=== PATIENT | female | born 1990 | race American Indian/Alaskan Native ===

== ENCOUNTER 2018-04-15 20:21 | Emergency (ER) | payer MEDICAID, OTHER ==
[2018-04-15 20:50] VITALS: BP 144/101
[2018-04-15] MEDS ORDERED: TYLENOL PO ONE (20:50)
[2018-04-15 21:17] LABS: HCG Qualitative,Urine Negative (Negative)
[2018-04-16] MEDS ORDERED: NORCO 5/325 PO ONE (00:23)
[2018-04-16] MEDS ORDERED: NORCO 5/325 ONE (00:25)
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
== END 2018-04-16 02:05 | disposition home or self-care (01) ==
LOC: ED 20:21
DX: M79.1 Myalgia (principal); V49.09XA Driver injured in collision with other motor vehicles in nontraffic accident, initial encounter; Y93.89 Activity, other specified; Y99.8 Other external cause status; Y92.488 Other paved roadways as the place of occurrence of the external cause
CPT/HCPCS: 81025; 99282

== ENCOUNTER 2019-02-16 09:04 | Outpatient (CLI) | payer MEDICAID ==
[2019-02-16 09:32] VITALS: BP 123/85
[2019-02-16] MEDS ORDERED: LACTATED RINGERS 1,000 ML IV SCH (10:00)
== END 2019-02-16 10:06 | disposition home or self-care (01) ==
LOC: TRG 09:04
PROVIDERS: ATTEND Obstetrics & Gynecology
DX: O47.1 False labor at or after 37 completed weeks of gestation (principal); O10.013 Pre-existing essential hypertension complicating pregnancy, third trimester; Z3A.38 38 weeks gestation of pregnancy
CPT/HCPCS: 59025

== ENCOUNTER 2019-02-20 11:24 | Inpatient (IN) | payer MEDICAID ==
[2019-02-20] MEDS ORDERED: LACTATED RINGERS 1,000 ML ONE (11:36)
[2019-02-20] MEDS: LACTATED RINGERS 1,000 ML IV SCH (12:18)
[2019-02-20] MEDS ORDERED: BRETHINE SUB-Q PRN (12:57)
[2019-02-20] MEDS ORDERED: BRETHINE IVP PRN (12:57)
[2019-02-20] MEDS ORDERED: STADOL IV PRN (12:57)
[2019-02-20] MEDS ORDERED: MINERAL OIL PO PRN (12:57)
[2019-02-20] MEDS ORDERED: SUBLIMAZE IV PRN (12:57)
[2019-02-20] MEDS ORDERED: PITOCin/NS 20 UNIT/1000ML DRIP 20 UNITS/1,000 ML BAG IV SCH (13:00)
--- NOTE | 2019-02-20 13:08 | History and Physical Report ---
History of Present Illness Date of examination: 02/20/19 Date of admission: 02/20/19 11:24 Chief complaint: Direct admit from the clinic for IOL History of present illness: 28yo G 2 P 1 0 0 1 @ 39 weeks 0 day here from the clinic for a direct admission secondary to elevated BPs at the clinic, SO of 1.71cm & BPP of 6/8 at [facility]. Report available and reviewed. She reports +FMs but denies UCs, VB, LOF, headache, visual disturbances or RUQ pain. She is a [employer] patient who initiated care at 5 weeks gestation. Her course is complicated by h/o pre-eclampsia (on ASA 81mg qd), chronic HTN(on Methyldopa 250mg BID), history of genital herpes (on suppressive therapy; denies recent outbreak or prodromal sxs) and ASCUS with +HR HPV on pap. Labs: Opos, Antibody Screen neg, RI, VDRL NR, HBsAg neg, HIV neg, Diabetes Screen 110, GC/CT/Trich neg, GBS neg. Past History Past Medical History: hypertension Past Surgical History: no surgical history [employer] History: abnormal PAP smear (+HR HPV), herpes Family/Genetic History: diabetes (type I), hypertension, cancer (breast), other (SLE) Social history: , lives with family, full code. denies: smoking, alcohol abuse, prescription drug abuse, IV drug use - Obstetrical History Expected Date of Delivery: 02/27/19 Actual Gestation: 39 Week(s) 0 Day(s) : 2 Para: 1 Hx # Term Pregnancies: 1 Number of Pregnancies: 0 Spontaneous Abortions: 0 Induced : 0 Number of Living Children: 1 #1 Infant Gender: Male year: [birth year]) Birthweight: 3.147 kg Gestational age at delivery: 38 Complications: other (pre-eclamptic, MgSO4 during labor, antihypertensive PP) Medications and Allergies Allergies Allergy/AdvReac Type Severity Reaction Status Date / Time No Known Allergies Allergy Verified 04/16/18 00:36 Home Medications Medication Instructions Recorded Confirmed Last Taken Type Methyldopa [Aldomet] 1 tab PO BID 02/20/19 02/20/19 02/20/19 07:00 History Vit-Fe Fumar-FA [ 1 tab PO QDAY 06/02/20/19 02/20/19 Hist ory Vitamin] valACYclovir [Valtrex] 500 mg PO BID 02/20/19 02/20/19 02/20/19 History Active Meds: Active Medications Lactated Ringer's (Lactated Ringers) 1,000 mls @ 125 mls/hr IV DIRECT MENDEZ Last Admin: 02/20/19 12:18 Dose: 125 mls/hr Documented by: Review of Systems All systems: negative - Vital Signs Vital signs: Vital Signs Pulse Pulse Ox 89 96 02/20/19 11:42 02/20/19 11:42 Temp Pulse Resp BP Pulse Ox 80 139/89 96 02/20/19 12:37 02/20/19 12:37 02/20/19 12:02 - Obstetrical FHR: auscultation normal, category 1 FHR comments: baseline 130, moderate variability, 15x15 accels, no decels Cervical Dilatation: 0.5 Cervical Effacement Percentage: 60 station: -2 Uterine Contraction Pattern: Irregular Results All other labs normal. Assessment and Plan - Patient Problems (1) 39 weeks gestation of Current Visit: Yes Status: Acute (2) Oligohydramnios in third trimester Current Visit: Yes Status: Acute Plan to address problem: SO 1.71cm today at [facility]. Report available and reviewed. (3) Chronic hypertension during Current Visit: Yes Status: Acute Plan to address problem: Asymptomatic PIH labs ordered (pending) Continue Methyldopa 250mg PO BID (4) Encounter for induction of labor Current Visit: Yes Status: Acute Plan to address problem: Admit to L&D with routine labor orders Cervical for cervical ripening Anticipate vaginal delivery
[2019-02-20 13:16] LABS: Hematocrit 35.6 % (30.3-42.9); Hemoglobin 12.3 gm/dl (10.1-14.3); Mean Corpuscular HGB Conc 35 % (30-34); Mean Corpuscular Volume 88 fl (79-97); Platelet Count 277 K/mm3 (140-440); Red Blood Count 4.05 M/mm3 (3.65-5.03); Red Cell Distribution Width 14.6 % (13.2-15.2)
[2019-02-20 13:19] LABS: Bilirubin,Urine NEG (Negative); Blood,Urine NEG (Negative); Color,Urine Yellow (Yellow); Protein,Urine <15 mg/dL mg/dL (Negative); Urobilinogen,Urine < 2.0 mg/dL (<2.0)
[2019-02-20 13:20] LABS: Alanine Aminotransferase 21 units/L (7-56); Uric Acid 4.3 mg/dL (3.5-7.6)
[2019-02-20] MEDS ORDERED: CERVIDIL VG ONE (13:57)
[2019-02-20] MEDS ORDERED: XYLOCAINE 2% INFILTRATI ONE (14:00)
[2019-02-20] MEDS ORDERED: ALDOMET PO SCH (22:00)
[2019-02-20] MEDS ORDERED: MAGNESIUM SULFATE 4GM/100ML 4 GM/100 ML BAG IV ONE (22:02)
[2019-02-20] MEDS ORDERED: APRESOLINE IV ONE (22:08)
--- NOTE | 2019-02-20 22:11 | Event Note ---
Date: 02/20/19 BPs elevated 150s-160s/100s. Pt. denies headache, visual disturbance, swelling, or nausea/vomiting. IV Hydralazine ordered. Magnesium Sulfate ordered. Discussed elevated blood pressures with patient and need for above medications. Patient states she is in agreement with plan. Dr. Christine notified of elevated BPs and interventions taken.
[2019-02-20] MEDS ORDERED: MAGNESIUM SULFATE 40GM/1000ML 40 GM/1,000 ML BAG IV SCH (23:00)
[2019-02-21] MEDS: ALDOMET PO SCH ×3 (00:12→21:53)
--- NOTE | 2019-02-21 07:07 | Event Note ---
Date: 02/21/19 Patient declines to have another Cervidil. Pitocin induction ordered. Discussed with patient risks and benefits of Pitocin. Patient consented to Pitocin induction of labor. Orders put in.
[2019-02-21] MEDS ORDERED: PITOCin/NS 30 UNIT/500ML 30 UNITS/500 ML BAG IV SCH (08:00)
--- NOTE | 2019-02-21 09:12 | Progress Note ---
Assessment and Plan A: at 39 1/7 weeks gestation. Chronic hypertension with superimposed preeclampsia. Oligohydramnios. GBS negative. 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 P: Continuous EFM. Patient has refused Magnesium Sulfate (and she has been advised of risks of refusal). Pitocin induction of labor. Bedrest/SCDs. Continue Valtrex suppression of HSV. Consulted MD regarding this patient. Subjective - Subjective Date of service: 02/21/19 Principal diagnosis: at 39 1/7 weeks gestation; chronic HTN, oligohydramnios Interval history: Labor is being induced with Pitocin at 39 1/7 weeks gestation due to chronic hypertension and oligohydramnios. Patient has been taking Aldomet 250 mg po BID throughout her and during this admission. Patient had several markedly elevated blood pressures last night; IV hydralazine was ordered and magnesium sulfate was ordered. Per RN, patient refused magnesium sulfate. Patient has been advised of the risks of refusal (including seizures, possible or maternal compromise). Patient denies headache, visual disturbance, nausea or vomiting, edema, epigastric or abdominal pain. Patient denies leaking of fluid or vaginal bleeding. Patient reports active movement. She reports irregular contractions. Patient has refused a second Cervidil so Pitocin was begun earlier this morning. Patient reports: movement normal, contractions, no new complaints, no loss of fluid, no vaginal bleeding Objective - Vital Signs Vital Signs: Vital Signs - 12hr 02/20/19 02/20/19 02/20/19 21:19 21:28 21:34 Temperature Pulse Rate 82 93 H 102 H Respiratory Rate Blood Pressure 156/100 144/88 156/114 Blood Pressure [Left] 02/20/19 02/20/19 02/20/19 21:50 22:04 22:19 Temperature Pulse Rate 89 83 83 Respiratory Rate Blood Pressure 165/98 124/73 129/71 Blood Pressure [Left] 02/20/19 02/20/19 02/20/19 22:34 22:49 23:04 Temperature Pulse Rate 84 81 90 Respiratory Rate Blood Pressure 123/67 125/61 125/66 Blood Pressure [Left] 02/20/19 02/21/19 02/21/19 23:40 00:06 00:07 Temperature 96.9 F L Pulse Rate 85 78 Respiratory 16 Rate Blood Pressure 157/97 120/75 Blood Pressure [Left] 02/21/19 02/21/19 02/21/19 00:10 00:12 01:10 Temperature Pulse Rate 80 80 82 Respiratory Rate Blood Pressure 126/78 126/78 120/77 Blood Pressure [Left] 02/21/19 02/21/19 02/21/19 01:40 02:10 02:40 Temperature Pulse Rate 72 76 82 Respiratory Rate Blood Pressure 112/62 112/63 111/64 Blood Pressure [Left] 02/21/19 02/21/19 02/21/19 03:10 03:40 04:10 Temperature Pulse Rate 75 82 79 Respiratory Rate Blood Pressure 120/65 111/66 112/67 Blood Pressure [Left] 02/21/19 02/21/19 02/21/19 04:40 05:10 05:40 Temperature 97.5 F L Pulse Rate 76 68 95 H Respiratory 18 Rate Blood Pressure 119/67 108/57 121/77 Blood Pressure [Left] 02/21/19 02/21/19 02/21/19 07:03 07:45 08:45 Temperature 96.8 F L Pulse Rate 89 88 80 Respiratory 16 Rate Blood Pressure 117/76 137/99 123/84 Blood Pressure 137/99 [Left] 02/21/19 09:00 Temperature Pulse Rate 75 Respiratory Rate Blood Pressure 128/75 Blood Pressure [Left] - Exam Abdomen: Present: normal appearance, soft. Absent: distention, tenderness, guarding, rigidity Uterus: Present: normal, fundal height above umbilicus FHR: category 1 Uterine Contraction Monitor Mode: External Uterine Contraction Pattern: Irregular Uterine Contraction Intensity: Mild Extremities: normal - Labs Labs: Abnormal Labs 02/20/19 02/20/19 02/20/19 12:30 12:30 12:30 MCHC 35 H Creatinine 0.5 L Lactate Dehydrogenase 237 H Urine pH 8.0 H Laboratory Results - last 24 hr 02/20/19 02/20/19 02/20/19 12:30 12:30 12:30 WBC 7.8 RBC 4.05 Hgb 12.3 Hct 35.6 MCV 88 MCH 30 MCHC 35 H RDW 14.6 Plt Count 277 Creatinine 0.5 L Estimated GFR > 60 Uric Acid 4.3 Magnesium AST 28 ALT 21 Lactate Dehydrogenase 237 H Urine Color Yellow Urine Turbidity Slightly-cloudy Urine pH 8.0 H Ur Specific [place] 1.004 Urine Protein <15 mg/dl Urine Glucose (UA) Neg Urine Ketones Neg Urine Blood Neg Urine Nitrite Neg Urine Bilirubin Neg Urine Urobilinogen < 2.0 Ur Leukocyte Esterase Sm Urine WBC (Auto) 3.0 Urine RBC (Auto) 5.0 U Epithel Cells (Auto) 4.0 Urine Yeast (Budding) Few Blood Type Antibody Screen 02/20/19 02/21/19 12:30 04:27 WBC RBC Hgb Hct MCV MCH MCHC RDW Plt Count Creatinine Estimated GFR Uric Acid Magnesium 1.70 AST ALT Lactate Dehydrogenase Urine Color Urine Turbidity Urine pH Ur Specific [place] Urine Protein Urine Glucose (UA) Urine Ketones Urine Blood Urine Nitrite Urine Bilirubin Urine Urobilinogen Ur Leukocyte Esterase Urine WBC (Auto) Urine RBC (Auto) U Epithel Cells (Auto) Urine Yeast (Budding) Blood Type O POSITIVE Antibody Screen Negative
[2019-02-21] MEDS ORDERED: NARCAN 2 MG/2 ML IV PRN (11:33)
--- NOTE | 2019-02-21 11:36 | Anesthesia Day of Surgery ---
Anesthesia Day of Surgery - Day of Surgery Patient Examined: Yes Patient H&P Reviewed: Yes
--- NOTE | 2019-02-21 11:36 | Anesthesia Consultation ---
Anesthesia Consult and Med Hx Date of service: 02/21/19 - Pre-Operative Health Status ASA Pre-Surgery Classification: ASA2 Proposed Anesthetic Plan: Epidural - Pulmonary Hx Asthma: No COPD: No Hx Pneumonia: No - Cardiovascular System Hx Hypertension: Yes (Pre-eclampsia) - Central Nervous System Hx Seizures: No Hx Psychiatric Problems: No - Endocrine Hx Renal Disease: No Hx End Stage Renal Disease: No Hx Hypothyroidism: No Hx Hyperthyroidism: No - Hematic Hx Anemia: No Hx Sickle Cell Disease: No - Other Systems Hx Alcohol Use: No
[2019-02-21] MEDS ORDERED: fentaNYL-BUPIV 2 MCG/ML-0.125% 200 MCG/100 ML BAG EPIDURAL SCH (12:00)
[2019-02-21] MEDS ORDERED: CERVIDIL VG ONE (18:00)
--- NOTE | 2019-02-21 18:33 | Event Note ---
Date: 02/21/19 Cervidil 10 mg vaginal insert placed in posterior fornix of vagina.
[2019-02-21] MEDS: VALTREX PO SCH (21:54)
--- NOTE | 2019-02-22 08:24 | Progress Note ---
Assessment and Plan A: at 39 2/7 weeks gestation. Chronic hypertension. Oligohydramnios. GBS negative. P: Pitocin induction of labor. Continuous EFM. Continue Aldomet 250 mg po BID. Subjective - Subjective Date of service: 02/22/19 Principal diagnosis: at 39 2/7 weeks gestation; chronic HTN, oligohydramnios; IOL Interval history: Labor is being induced with Pitocin at 39 2/7 weeks gestation due to chronic hypertension and oligohydramnios. Patient has been taking Aldomet 250 mg po BID throughout her and during this admission. Patient had Cervidil again overnight. She reports irregular contractions, le aking of fluid, or vaginal bleeding. Patient reports active movement. She denies headache, visual disturbance, or edema. Patient reports: movement normal, contractions, no new complaints, no loss of fluid, no vaginal bleeding Objective - Vital Signs Vital Signs: Vital Signs - 12hr 02/21/19 02/21/19 02/21/19 21:17 21:53 21:54 Temperature Pulse Rate 79 79 91 H Respiratory Rate Blood Pressure 117/68 110/59 110/59 Blood Pressure [Right] 02/21/19 02/21/19 02/22/19 22:17 23:17 00:17 Temperature Pulse Rate 84 72 78 Respiratory Rate Blood Pressure 113/70 114/65 107/60 Blood Pressure [Right] 02/22/19 02/22/19 02/22/19 00:30 01:17 02:17 Temperature 97.7 F Pulse Rate 77 82 Respiratory 18 Rate Blood Pressure 102/58 113/71 Blood Pressure [Right] 02/22/19 02/22/19 02/22/19 05:17 06:18 07:54 Temperature 98.6 F Pulse Rate 86 80 85 Respiratory 18 Rate Blood Pressure 110/80 114/74 141/96 Blood Pressure 141/96 [Right] - Exam Abdomen: Present: normal appearance, soft. Absent: distention, tenderness, guarding, rigidity Uterus: Present: normal, fundal height above umbilicus. Absent: tenderness FHR: category 1 Uterine Contraction Monitor Mode: External Uterine Contraction Pattern: Irregular Uterine Contraction Intensity: Mild Extremities: normal - Labs Labs: Abnormal Labs 02/20/19 02/20/19 02/20/19 12:30 12:30 12:30 MCHC 35 H Creatinine 0.5 L Magnesium Lactate Dehydrogenase 237 H Urine pH 8.0 H 02/21/19 02/21/19 10:00 14:27 MCHC Creatinine Magnesium 1.60 L 1.50 L Lactate Dehydrogenase Urine pH Laboratory Results - last 24 hr 02/20/19 02/21/19 02/21/19 12:30 10:00 14:27 Magnesium 1.60 L 1.50 L RPR Nonreactive
[2019-02-22] MEDS ORDERED: PITOCin/NS 30 UNIT/500ML 30 UNITS/500 ML BAG IV SCH (09:00)
[2019-02-22] MEDS: VALTREX PO SCH ×2 (10:02→22:00)
[2019-02-22] MEDS: ALDOMET PO SCH ×2 (10:02→22:00)
[2019-02-22] MEDS: LACTATED RINGERS 1,000 ML IV SCH ×3 (10:04→20:05)
[2019-02-22] MEDS ORDERED: STADOL IV ONE (20:04)
[2019-02-23] MEDS ORDERED: NARCAN 2 MG/2 ML IV PRN (02:21)
--- NOTE | 2019-02-23 02:23 | Anesthesia Consultation ---
Anesthesia Consult and Med Hx Date of service: 02/23/19 - Airway Anesthetic Teeth Evaluation: Good ROM Head & Neck: Adequate Mental/Hyoid Distance: Adequate Mallampati Class: Class II Intubation Access Assessment: Good - Pulmonary Exam CTA: Yes - Cardiac Exam Cardiac Exam: RRR - Pre-Operative Health Status ASA Pre-Surgery Classification: ASA3 Proposed Anesthetic Plan: Epidural - Pulmonary Hx Asthma: No COPD: No Hx Pneumonia: No - Cardiovascular System Hx Hypertension: Yes (Pre-eclampsia, chronic htn) - Central Nervous System Hx Seizures: No Hx Psychiatric Problems: No - Endocrine Hx Renal Disease: No Hx End Stage Renal Disease: No Hx Hypothyroidism: No Hx Hyperthyroidism: No - Hematic Hx Anemia: No Hx Sickle Cell Disease: No - Other Systems Hx Alcohol Use: No
--- NOTE | 2019-02-23 02:23 | Anesthesia Day of Surgery ---
Anesthesia Day of Surgery - Day of Surgery Patient Examined: Yes Patient H&P Reviewed: Yes Patient is NPO: No
[2019-02-23] MEDS ORDERED: fentaNYL-BUPIV 2 MCG/ML-0.125% 200 MCG/100 ML BAG EPIDURAL SCH (03:00)
[2019-02-23] MEDS ORDERED: TUMS PO ONE (05:05)
--- NOTE | 2019-02-23 05:58 | Procedure Note ---
OB Delivery Note - Delivery Date of Delivery: 02/23/19 Surgeon: PINO AWAD Estimated blood loss: 200cc - Vaginal Delivery presentation: vertex Delivery position: OA Intrapartum events: none Delivery induction: AROM Delivery monitor: external FHT, external uterine Route of delivery: Delivery placenta: spontaneous Delivery cord: 3 umbilical vessels Episiotomy: none Delivery laceration: none Anesthesia: epidural Delivery comments: Spontaneous vaginal delivery at 05:36 of liveborn male infant weighing 6 lb. 3.5 oz. over intact perineum with apgars of 8/9. Baby placed skin to skin with mom immediately after delivery. Spontaneous cry and respirations. Baby bulb suctioned and dried. 3 vessel cord double clamped and cut after cessation of pulsation. Spontaneous delivery of intact placenta and membranes at 05:44. EBL 200 cc. Pitocin to IV fluids after delivery of placenta. Fundus firm and midline. No lacerations noted. Vaginal sweep negative. Sponge count correct. Mother and baby stable in birthing room.
[2019-02-23] MEDS ORDERED: TUCKS PAD TP PRN (05:59)
[2019-02-23] MEDS ORDERED: LANSINOH TP PRN (05:59)
[2019-02-23] MEDS ORDERED: BENADRYL PO PRN (05:59)
[2019-02-23] MEDS ORDERED: MILK OF MAGNESIA PO PRN (05:59)
[2019-02-23] MEDS ORDERED: NORCO 5/325 PO PRN (05:59)
[2019-02-23] MEDS ORDERED: DULCOLAX PR PRN (05:59)
[2019-02-23] MEDS ORDERED: SODIUM CHLORIDE FLUSH SYRINGE 10 ML IV NR (06:00)
[2019-02-23] MEDS ORDERED: APRESOLINE IV ONE (07:50)
[2019-02-23] MEDS ORDERED: CYTOTEC ONE ×3 (07:59→10:12)
[2019-02-23] MEDS ORDERED: CYTOTEC PR ONE (08:00)
[2019-02-23] MEDS ORDERED: NACL 0.9% 500 ML 500 ML IV ONE (08:09)
--- NOTE | 2019-02-23 08:17 | Event Note ---
Date: 02/23/19 Called by nurse to room. Nurse states patient is now bleeding per vagina. About 250 cc bright red blood noted per vagina upon fundal massage. Fundus above umbilicus and deviated toward right. Bladder full. Straight cath done; 900 cc of urine obtained. Patient's BP 66/37 was and pulse normal at [address] Fernández to come in and assess patient; Dr. Christine was in house and he came and assessed patient since Dr. Fernández is en route to hospital. Stat H/H, fibrinogen, PT, PTT, and d-dimer ordered. 2 units of blood ordered stat. Patient is feeling better and vital signs are improving.
[2019-02-23 08:29] LABS: Hematocrit 31.2 % (30.3-42.9); Hemoglobin 10.6 gm/dl (10.1-14.3)
[2019-02-23 08:40] LABS: INR 1.18 (0.87-1.13)
[2019-02-23] MEDS: ALDOMET PO SCH ×2 (09:54→22:46)
[2019-02-23] MEDS: VALTREX PO SCH (09:55)
[2019-02-23] MEDS ORDERED: ALDOMET PO SCH (10:00)
--- NOTE | 2019-02-23 15:13 | Post Anesthesia Evaluation ---
- Post Anesthesia Evaluation Patient Participated: Yes Airway Patent: Yes Stable Respiratory Function: Yes Nausea/Vomiting: No Temp > 96.8F: Yes Pain Manageable: Yes Adequeate Hydration: Yes Anesthesia Complications: No Block Receding Appropriately: Yes Patient on Ventilator: No
[2019-02-23] MEDS: IBUPROFEN PO SCH ×3 (17:49→23:14)
[2019-02-23] MEDS: COLACE PO SCH ×2 (17:50→22:46)
[2019-02-23 18:09] LABS: Hematocrit 27.8 % (30.3-42.9); Hemoglobin 9.4 gm/dl (10.1-14.3)
[2019-02-24] MEDS: IBUPROFEN PO SCH ×3 (05:35→11:08)
[2019-02-24] MEDS: FEOSOL PO SCH ×2 (11:03→22:28)
[2019-02-24] MEDS: COLACE PO SCH ×2 (11:03→22:29)
[2019-02-24] MEDS: ALDOMET PO SCH ×2 (11:06→22:28)
--- NOTE | 2019-02-24 12:05 | Progress Note ---
Assessment and Plan - Patient Problems (1) (normal spontaneous vaginal delivery) Current Visit: Yes Status: Acute Plan to address problem: Continue routine PP orders Anticipate d/c home within 24 hrs (2) Anemia Current Visit: Yes Status: Acute Qualifiers: Anemia type: iron deficiency Iron deficiency anemia type: inadequate dietary iron intake Qualified Code(s): D50.8 - Other iron deficiency anemias Plan to address problem: Asymptomatic Continue daily po iron supplementation Subjective - Subjective Date of service: 02/24/19 Principal diagnosis: at 39 2/7 weeks gestation; chronic HTN, oligohydramnios; IOL Interval history: See admission H & P, OB delivery summary and PP progress notes Patient reports: appetite normal, voiding normally, pain well controlled, flatus, bowel movement, ambulating normally, other (Would like to go home today. Informed her that if baby is ok's for d/c today, then she may go home today, otherwise will plan for d/c tomorrow) : doing well, bottle feeding (and ) Objective - Vital Signs Latest vital signs: Vital Signs Temp Pulse Resp BP BP BP Pulse Ox 02/24/19 11:06 88 123/71 02/24/19 07:22 97.6 F 86 18 123/71 02/24/19 00:00 98.8 F 74 18 121/76 02/23/19 22:46 87 139/94 02/23/19 22:45 87 139/94 02/23/19 16:44 98.5 F 99 H 18 129/87 02/23/19 14:05 98.3 F 107 H 18 147/95 85 Intake and Output 02/23/19 02/24/19 02/24/19 23:59 07:59 15:59 Intake Total 1360 780 Balance 1360 780 Intake: Oral 1360 480 Intake, Free Water 300 Other: Total, Intake Amount 1040 480 Voiding Method Toilet # Voids 1 Void 1 # Bowel Movements 1 - Exam Breasts: Present: normal Cardiovascular: Present: Regular rate Lungs: Present: Normal air movement Abdomen: Present: soft, normal bowel sounds Uterus: Present: firm, fundal height below umbilicus (U-1) Extremities: Present: normal Deep Tendon Reflex Grade: Normal +2 - Labs Labs: Abnormal lab results 02/23/19 Range/Units 17:34 Hgb 9.4 L (10.1-14.3) gm/dl Hct 27.8 L (30.3-42.9) %
--- NOTE | 2019-02-24 12:11 | Discharge Summary ---
Providers - Providers Date of Admission: 02/20/19 11:24 Date of discharge: 02/25/19 Attending physician: CHRISTY HINTON MD Primary care physician: CHRISTY HINTON MD Hospitalization Reason for admission: induction of labor Delivery: Episiotomy: none Laceration: none Other procedures: none complications: none Discharge diagnosis: IUP at term delivered, other (Chronic HTN; anemia) baby: male Hospital course: See admission H & P, OB delivery summary and PP progress notes Condition at discharge: Stable Disposition: [id number] TO HOME OR SELFCARE - Discharge Diagnoses (1) (normal spontaneous vaginal delivery) Status: Acute (2) Anemia Status: Acute Qualifiers: Anemia type: iron deficiency Iron deficiency anemia type: inadequate dietary iron intake Qualified Code(s): D50.8 - Other iron deficiency anemias (3) Chronic hypertension Status: Acute Plan - Provider Discharge Summary Activity: routine, no sex for 6 weeks, no heavy lifting 4 weeks, no strenuous exercise Diet: other (2 gram low sodium diet) Instructions: routine Additional instructions: [] Smoking cessation referral if applicable(refer to patient education folder for contact #) [] Refer to [facility] Booklet Call your doctor immediately for: * Fever > 100.5 * Heavy vaginal bleeding ( >1 pad per hour) * Severe persistent headache * Shortness of breath * Reddened, hot, painful area to leg or breast * Drainage or odor from incision. * Continue oral daily HTN medications and f/u with office for B/P check in 1 week * Continue oral daily iron supplementation - Follow up plan Follow up: CHRISTY HINTON MD [Primary Care Provider] - 7 Days
[2019-02-25] MEDS: IBUPROFEN PO SCH ×2 (05:13)
[2019-02-25] MEDS: ALDOMET PO SCH (10:15)
[2019-02-25] MEDS: FEOSOL PO SCH (10:17)
[2019-02-25] MEDS: COLACE PO SCH (10:17)
[2019-02-25 13:10] VITALS: BP 137/88
== END 2019-02-25 15:15 | disposition home or self-care (01) | DRG 774 ==
LOC: LD 11:24 → OB 02-23 10:48
PROVIDERS: ADMIT Obstetrics & Gynecology; ATTEND Obstetrics & Gynecology
PROC: 10E0XZZ Delivery of Products of Conception, External Approach (ICD-10-PCS; principal; 2019-02-23)
PROC: 3E0P7VZ Introduction of Hormone into Female Reproductive, Via Natural or Artificial Opening (ICD-10-PCS; 2019-02-23)
PROC: 3E033VJ Introduction of Other Hormone into Peripheral Vein, Percutaneous Approach (ICD-10-PCS; 2019-02-23)
PROC: 10907ZC Drainage of Amniotic Fluid, Therapeutic from Products of Conception, Via Natural or Artificial Opening (ICD-10-PCS; 2019-02-23)
PROC: 3E0R3BZ Introduction of Anesthetic Agent into Spinal Canal, Percutaneous Approach (ICD-10-PCS; 2019-02-23)
PROC: 3E0R33Z Introduction of Anti-inflammatory into Spinal Canal, Percutaneous Approach (ICD-10-PCS; 2019-02-23)
DX: O11.4 Pre-existing hypertension with pre-eclampsia, complicating childbirth (principal); O99.02 Anemia complicating childbirth; O41.03X0 Oligohydramnios, third trimester, not applicable or unspecified; D50.9 Iron deficiency anemia, unspecified; Z3A.39 39 weeks gestation of pregnancy; Z37.0 Single live birth; Z83.3 Family history of diabetes mellitus; Z82.49 Family history of ischemic heart disease and other diseases of the circulatory system; Z80.3 Family history of malignant neoplasm of breast
CPT/HCPCS: 36415; 59200; 81001; 82565; 83615; 83735; 84450; 84460; 84550; 85014; 85018; 85027; 85379; 85384; 85610; 85730; 86592; 86850; 86900; 86901; 86920; G0378; A6250; J0360; J0595; J2590; J3010; J3475; J7120

== ENCOUNTER 2020-04-05 14:54 | Emergency (ER) | payer MEDICAID ==
[2020-04-05] MEDS ORDERED: SODIUM CHLORIDE 0.9% 1000 ML 1,000 ML IV ONE (16:40)
--- NOTE | 2020-04-05 17:51 | Emergency Department Report ---
ED Palpitations HPI - General Chief Complaint: Arrhythmia/Palpitations Stated Complaint: ELEVATED HEART RATE Time Seen by Provider: 04/05/20 16:28 Source: patient, EMS Mode of arrival: Wheelchair Limitations: No Limitations - History of Present Illness Initial Comments: 29-year-old female no significant past medical history presents to the hospital with complaints of palpitations and shortness of breath that started within 1 hour of taking her fat burning supplement. Patient has been taking her fat burning supplement (patient does not recall the name) for the past 3 days. She obtained medication from the supplement section at the gym. She was told she can take 1 to 2 tablets at a time. Patient had mild palpitation shortness of breath yesterday. Today she took 2 tablets at 11 AM and within an hour she had symptoms. Patient was brought in by EMS with report at 130 heart rate prior to arrival. While waiting in the ED patient symptoms are slowly began to resolve. Patient is on Mirena control. She denies history of PE/DVT, pleuritic chest pain, calf tenderness, or leg edema - Related Data Home Medications Medication Instructions Recorded Confirmed Last Taken Methyldopa [Aldomet] 1 tab PO BID 02/20/19 02/20/19 02/20/19 07:00 Vit-Fe Fumar-FA [ 1 tab PO QDAY 02/20/19 02/20/19 02/20/19 Vitamin] valACYclovir [Valtrex] 500 mg PO BID 02/20/19 02/20/19 02/20/19 Previous Rx's Medication Instructions Recorded Last Taken Type Fluconazole (Nf) [Diflucan TAB] 150 mg PO ONCE #1 tablet 04/05/20 Unknown Rx Nitrofurantoin [place]/M-Cryst 100 mg PO Q12HR #10 capsule 04/05/20 Unknown Rx [Macrobid CAP] Allergies Allergy/AdvReac Type Severity Reaction Status Date / Time No Known Allergies Allergy Verified 04/16/18 00:36 ED Review of Systems ROS: Stated complaint: ELEVATED HEART RATE Other details as noted in HPI Comment: All other systems reviewed and negative ED Past Medical Hx - Past Medical History Hx Hypertension: Yes (Pre-eclampsia, chronic htn) Hx Congestive Heart Failure: No Hx Diabetes: No Hx Deep Vein Thrombosis: No Hx Renal Disease: No Hx Sickle Cell Disease: No Hx Seizures: No Hx Asthma: No Hx COPD: No Hx HIV: No - Social History Smoking Status: Never Smoker Substance Use Type: None - Medications Home Medications: Home Medications Medication Instructions Recorded Confirmed Last Taken Type Methyldopa [Aldomet] 1 tab PO BID 02/20/19 02/20/19 02/20/19 07:00 History Vit-Fe Fumar-FA [ 1 tab PO QDAY 02/20/19 02/20/19 02/20/19 History Vitamin] valACYclovir [Valtrex] 500 mg PO BID 02/20/19 02/20/19 02/20/19 History Fluconazole (Nf) [Diflucan TAB] 150 mg PO ONCE #1 tablet 04/05/20 Unknown Rx Nitrofurantoin [place]/M-Cryst 100 mg PO Q12HR #10 capsule 04/05/20 Unknown Rx [Macrobid CAP] ED Physical Exam - General Limitations: No Limitations - Other Other exam information: General: No acute distress Head: Atraumatic Eyes: normal appearance ENT: Moist mucous membranes Neck: Normal appearance, no midline tenderness Chest: Clear to auscultation bilaterally CV: Regular rate and rhythm Abdomen: Soft, normal bowel sounds, nontender, nondistended, no rebound or guarding Back: Normal inspection Extremity: Normal inspection, full range of motion, no calf tenderness or leg edema Neuro: Alert O x 3, no facial asymmetry, speech clear, no gross motor sensory deficit Psych: Appropriate behavior Skin: No rash, ED Course Vital Signs 04/05/20 04/05/20 04/05/20 15:11 17:39 18:00 Temperature 98.2 F Pulse Rate 116 H Respiratory 14 Rate Blood Pressure 124/86 114/83 110/76 Blood Pressure [Left] O2 Sat by Pulse 98 Oximetry 04/05/20 04/05/20 18:30 18:50 Temperature Pulse Rate 91 H Respiratory 16 Rate Blood Pressure 117/80 Blood Pressure 117/80 [Left] O2 Sat by Pulse 97 Oximetry ED Medical Decision Making - Lab Data Result diagrams: 04/05/20 17:23 04/05/20 17:23 Lab Results 04/05/20 04/05/20 04/05/20 Range/Units 17:23 17:23 17:23 WBC 5.9 (4.5-11.0) K/mm3 RBC 4.51 (3.65-5.03) M/mm3 Hgb 12.6 (10.1-14.3) gm/dl Hct 38.6 (30.3-42.9) % MCV 86 (79-97) fl MCH 28 (28-32) pg MCHC 33 (30-34) % RDW 14.6 (13.2-15.2) % Plt Count 369 (140-440) K/mm3 Lymph % (Auto) 14.6 (13.4-35.0) % [place] % (Auto) 4.0 (0.0-7.3) % Eos % (Auto) 0.1 (0.0-4.3) % Baso % (Auto) 0.4 (0.0-1.8) % Lymph # 0.9 L (1.2-5.4) K/mm3 [place] # 0.2 (0.0-0.8) K/mm3 Eos # 0.0 (0.0-0.4) K/mm3 Baso # 0.0 (0.0-0.1) K/mm3 Seg Neutrophils % 80.9 H (40.0-70.0) % Seg Neutrophils # 4.8 (1.8-7.7) K/mm3 D-Dimer 306.74 H (0-234) ng/mlDDU Sodium 137 (137-145) mmol/L Potassium 3.7 (3.6-5.0) mmol/L Chloride 102.7 (98-107) mmol/L Carbon Dioxide 24 (22-30) mmol/L Anion Gap 14 mmol/L BUN 10 (7-17) mg/dL Creatinine 0.9 (0.6-1.2) mg/dL Estimated GFR > 60 ml/min BUN/Creatinine Ratio 11 % Glucose 111 H (65-100) mg/dL Calcium 9.2 (8.4-10.2) mg/dL TSH (0.270-4.200) mlU/mL Free T4 (0.76-1.46) ng/dL HCG, Qual (Negative) Urine Color (Yellow) Urine Turbidity (Clear) Urine pH (5.0-7.0) Ur Specific [place] (1.003-1.030) Urine Protein (Negative) mg/dL Urine Glucose (UA) (Negative) mg/dL Urine Ketones (Negative) mg/dL Urine Blood (Negative) Urine Nitrite (Negative) Urine Bilirubin (Negative) Urine Urobilinogen (<2.0) mg/dL Ur Leukocyte Esterase (Negative) Urine WBC (Auto) (0.0-6.0) /HPF Urine RBC (Auto) (0.0-6.0) /HPF U Epithel Cells (Auto) (0-13.0) /HPF Urine Bacteria (Auto) (Negative) /HPF Urine Mucus /HPF Urine Yeast (Budding) /HPF Urine HCG, Qual (Negative) Urine Opiates Screen Urine Methadone Screen Ur Barbiturates Screen Ur Phencyclidine Scrn Ur Amphetamines Screen U Benzodiazepines Scrn Urine Cocaine Screen U Marijuana (THC) Screen Drugs of Abuse Note 04/05/20 04/05/20 04/05/20 Range/Units 17:23 17:23 17:40 WBC (4.5-11.0) K/mm3 RBC (3.65-5.03) M/mm3 Hgb (10.1-14.3) gm/dl Hct (30.3-42.9) % MCV (79-97) fl MCH (28-32) pg MCHC (30-34) % RDW (13.2-15.2) % Plt Count (140-440) K/mm3 Lymph % (Auto) (13.4-35.0) % [place] % (Auto) (0.0-7.3) % Eos % (Auto) (0.0-4.3) % Baso % (Auto) (0.0-1.8) % Lymph # (1.2-5.4) K/mm3 [place] # (0.0-0.8) K/mm3 Eos # (0.0-0.4) K/mm3 Baso # (0.0-0.1) K/mm3 Seg Neutrophils % (40.0-70.0) % Seg Neutrophils # (1.8-7.7) K/mm3 D-Dimer (0-234) ng/mlDDU Sodium (137-145) mmol/L Potassium (3.6-5.0) mmol/L Chloride (98-107) mmol/L Carbon Dioxide (22-30) mmol/L Anion Gap mmol/L BUN (7-17) mg/dL Creatinine (0.6-1.2) mg/dL Estimated GFR ml/min BUN/Creatinine Ratio % Glucose (65-100) mg/dL Calcium (8.4-10.2) mg/dL TSH 0.697 (0.270-4.200) mlU/mL Free T4 1.29 (0.76-1.46) ng/dL HCG, Qual Negative (Negative) Urine Color Colorless (Yellow) Urine Turbidity Clear (Clear) Urine pH 7.0 (5.0-7.0) Ur Specific [place] 1.003 (1.003-1.030) Urine Protein <15 mg/dl (Negative) mg/dL Urine Glucose (UA) Neg (Negative) mg/dL Urine Ketones Neg (Negative) mg/dL Urine Blood Sm (Negative) Urine Nitrite Neg (Negative) Urine Bilirubin Neg (Negative) Urine Urobilinogen < 2.0 (<2.0) mg/dL Ur Leukocyte Esterase Lg (Negative) Urine WBC (Auto) 17.0 H (0.0-6.0) /HPF Urine RBC (Auto) 5.0 (0.0-6.0) /HPF U Epithel Cells (Auto) 2.0 (0-13.0) /HPF Urine Bacteria (Auto) 1+ (Negative) /HPF Urine Mucus Few /HPF Urine Yeast (Budding) Few /HPF Urine HCG, Qual Negative (Negative) Urine Opiates Screen Urine Methadone Screen Ur Barbiturates Screen Ur Phencyclidine Scrn Ur Amphetamines Screen U Benzodiazepines Scrn Urine Cocaine Screen U Marijuana (THC) Screen Drugs of Abuse Note 04/05/20 Range/Units 17:40 WBC (4.5-11.0) K/mm3 RBC (3.65-5.03) M/mm3 Hgb (10.1-14.3) gm/dl Hct (30.3-42.9) % MCV (79-97) fl MCH (28-32) pg MCHC (30-34) % RDW (13.2-15.2) % Plt Count (140-440) K/mm3 Lymph % (Auto) (13.4-35.0) % [place] % (Auto) (0.0-7.3) % Eos % (Auto) (0.0-4.3) % Baso % (Auto) (0.0-1.8) % Lymph # (1.2-5.4) K/mm3 [place] # (0.0-0.8) K/mm3 Eos # (0.0-0.4) K/mm3 Baso # (0.0-0.1) K/mm3 Seg Neutrophils % (40.0-70.0) % Seg Neutrophils # (1.8-7.7) K/mm3 D-Dimer (0-234) ng/mlDDU Sodium (137-145) mmol/L Potassium (3.6-5.0) mmol/L Chloride (98-107) mmol/L Carbon Dioxide (22-30) mmol/L Anion Gap mmol/L BUN (7-17) mg/dL Creatinine (0.6-1.2) mg/dL Estimated GFR ml/min BUN/Creatinine Ratio % Glucose (65-100) mg/dL Calcium (8.4-10.2) mg/dL TSH (0.270-4.200) mlU/mL Free T4 (0.76-1.46) ng/dL HCG, Qual (Negative) Urine Color (Yellow) Urine Turbidity (Clear) Urine pH (5.0-7.0) Ur Specific [place] (1.003-1.030) Urine Protein (Negative) mg/dL Urine Glucose (UA) (Negative) mg/dL Urine Ketones (Negative) mg/dL Urine Blood (Negative) Urine Nitrite (Negative) Urine Bilirubin (Negative) Urine Urobilinogen (<2.0) mg/dL Ur Leukocyte Esterase (Negative) Urine WBC (Auto) (0.0-6.0) /HPF Urine RBC (Auto) (0.0-6.0) /HPF U Epithel Cells (Auto) (0-13.0) /HPF Urine Bacteria (Auto) (Negative) /HPF Urine Mucus /HPF Urine Yeast (Budding) /HPF Urine HCG, Qual (Negative) Urine Opiates Screen Presumptive negative Urine Methadone Screen Presumptive negative Ur Barbiturates Screen Presumptive negative Ur Phencyclidine Scrn Presumptive negative Ur Amphetamines Screen Presumptive negative U Benzodiazepines Scrn Presumptive negative Urine Cocaine Screen Presumptive negative U Marijuana (THC) Screen Presumptive negative Drugs of Abuse Note Disclamer - EKG Data -: EKG Interpreted by [place] EKG shows normal: sinus rhythm, ST-T waves (No ST elevation MO) Rate: normal (98) - Radiology Data Radiology results: report reviewed (ct angio chest normal) - Medical Decision Making Heart rate improved during ED stay. Patient is asymptomatic. Pulmonary embolism work-up negative. Symptoms likely secondary to stimulant effect of fat burning medication. Patient denies urinary symptoms but does states she has a vaginal discharge. UA suggestive of possible UTI uppercase vaginitis . Patient treated in the ED with Rocephin and liter normal saline Critical Care Time: No Critical care attestation.: If time is entered above; I have spent that time in minutes in the direct care of this critically ill patient, excluding procedure time. ED Disposition Clinical Impression: Adverse effects of medication, Palpitation, UTI (urinary tract infection), Yeast vaginitis Disposition: TO HOME OR SELFCARE Is pt being admited?: No Does the pt Need Aspirin: No Condition: Stable Instructions: Palpitations (ED), Urinary Tract Infection in Women (ED), Vulvovaginal Candidiasis (ED) Additional Instructions: Take the medication as prescribed. Follow-up with your doctor or doctor/clinic provided. Return if symptoms worsen as indicated by your discharge instructions. I recommend that you stop taking the fat burning supplement because it is likely a stimulant and can lead to recurrent palpitations and shortness of breath. Prescriptions: Fluconazole (Nf) [Diflucan TAB] 150 mg PO ONCE #1 tablet Nitrofurantoin [place]/M-Cryst [Macrobid CAP] 100 mg PO Q12HR #10 capsule Referrals: PRIMARY MD EDWIN [Primary Care Provider] - 3-5 Days [facility] [Provider Group] - 3-5 Days HOLLY GARCIA MD [Staff Physician] - 3-5 Days Time of Disposition: 20:54
[2020-04-05 18:01] LABS: Basophils % (Auto) 0.4 % (0.0-1.8); Eosinophils % (Auto) 0.1 % (0.0-4.3); Hematocrit 38.6 % (30.3-42.9); Hemoglobin 12.6 gm/dl (10.1-14.3); Lymphocytes # (Auto) 0.9 K/mm3 (1.2-5.4); Lymphocytes % (Auto) 14.6 % (13.4-35.0); Mean Corpuscular HGB Conc 33 % (30-34); Mean Corpuscular Volume 86 fl (79-97); Monocytes # (Auto) 0.2 K/mm3 (0.0-0.8); Platelet Count 369 K/mm3 (140-440); Red Blood Count 4.51 M/mm3 (3.65-5.03); Red Cell Distribution Width 14.6 % (13.2-15.2)
[2020-04-05 18:12] LABS: Bacteria,Urine 1+ /HPF (Negative); Bilirubin,Urine NEG (Negative); Blood,Urine SM (Negative); Color,Urine Colorless (Yellow); Mucus,Urine FEW /HPF; Protein,Urine <15 mg/dL mg/dL (Negative); Urobilinogen,Urine < 2.0 mg/dL (<2.0)
[2020-04-05 18:13] LABS: HCG Qualitative,Urine Negative (Negative)
[2020-04-05 18:27] LABS: BUN/Creatinine Ratio 11; Blood Urea Nitrogen 10 mg/dL (7-17); Calcium 9.2 mg/dL (8.4-10.2); Hemolysis Index 1
[2020-04-05] MEDS ORDERED: cefTRIAXone/NS 1 GM/50 ML 1 GM/50 ML BAG IV ONE (18:27)
[2020-04-05 18:52] VITALS: BP 117/80
[2020-04-05 19:11] LABS: Free T4 (Free Thyroxine) 1.29 ng/dL (0.76-1.46)
[2020-04-05 19:21] LABS: Amphetamine Screen,Urine PRESUMPTIVE NEGATIVE; Benzodiazepines Screen,Urine PRESUMPTIVE NEGATIVE; Cannabinoid Screen,Urine PRESUMPTIVE NEGATIVE; Methadone Screen,Urine PRESUMPTIVE NEGATIVE; Opiate Screen,Urine PRESUMPTIVE NEGATIVE
[2020-04-05 19:22] LABS: Cocaine Screen,Urine PRESUMPTIVE NEGATIVE
--- NOTE | 2020-04-05 20:26 | Cat Scan Report ---
CTA CHEST WITH CONTRAST INDICATION / CLINICAL INFORMATION: palpitations, sob, mild ddimer elevation. TECHNIQUE: Axial CT images were obtained through the chest after injection of IV contrast. 3 plane MIP and/or 3D reconstructions were produced. All CT scans at this location are performed using CT dose reduction f or ALARA by means of automated exposure control. COMPARISON: None available. FINDINGS: PULMONARY ARTERIES: No pulmonary emboli. THORACIC AORTA: No significant abnormality. HEART: No significant abnormality. CORONARY ARTERIES: No significant calcification. MEDIASTINUM / SHANIKA: No significant abnormality. PLEURA: No pleural effusion. No pneumothorax. LUNGS: No acute air space or interstitial disease. ADDITIONAL FINDINGS: None. UPPER ABDOMEN: No acute findings. SKELETAL STRUCTURES: No significant osseous abnormality. IMPRESSION: 1. No CT evidence for pulmonary embolism. 2. No acute findings. Signer Name: Merrill Robertson MD Signed: 04/05/2020 8:22 PM Workstation Name: [id number]
== END 2020-04-05 23:11 | disposition home or self-care (01) ==
LOC: ED 14:54
DX: N76.0 Acute vaginitis (principal); B96.89 Other specified bacterial agents as the cause of diseases classified elsewhere; N39.0 Urinary tract infection, site not specified; I10 Essential (primary) hypertension; Z79.899 Other long term (current) drug therapy; T50.905A Adverse effect of unspecified drugs, medicaments and biological substances, initial encounter; Y92.89 Other specified places as the place of occurrence of the external cause
CPT/HCPCS: 36415; 71275; 80048; 80307; 81001; 81025; 84439; 84443; 84703; 85025; 85379; 87086; 93005; 96361; 96365; 99285; J0696; J7030; Q9967